=== PATIENT | male | born 1990 | race Caucasian/White ===

== ENCOUNTER 2017-08-04 10:36 | Emergency (ER) | payer BC ==
[~2017-08-04] VITALS: Ht 175.3 cm; Wt 79.8 kg
[2017-08-04 10:42] VITALS: BP_SYST 138
[2017-08-04 12:12] VITALS: BP_SYST 138
== END 2017-08-04 12:12 | disposition home or self-care (01) ==
LOC: SED 10:36
DX: R21 Rash and other nonspecific skin eruption (principal)
CPT/HCPCS: 99282